=== PATIENT | male | born 1965 | race Caucasian/White ===

== ENCOUNTER 2017-03-02 20:48 | Inpatient (IN) | payer SELFPAY ==
[~2017-03-02] VITALS: Ht 180.3 cm; Wt 100.0 kg
[~2017-03-02 20:48] MED LIST: LEVO300T3 PO; LISI-366 PO; METF500 PO; QUET1TAB66 PO; RIVA20 PO
[2017-03-02 20:50] VITALS: BP 141/85; PULSE 118; RESP 16; TEMP 98.8; O2SAT 96
--- NOTE | 2017-03-02 22:44 | PD ---
HPI Chief Complaint: Injury Time Seen by Provider: 22:33 Travel History International Travel<30 days: No Contact w/Intl Traveler<30days: No Traveled to known affect area: No History of Present Illness HPI This is a 51-year-old male who presents to the emergency department with pain in his left leg immediately behind his knee, constant, cramping like a charley horse is been going on for several days. He also has persistent redness and warmth of his lower left leg that is been going on for over a month. He's been on multiple courses of Bactrim and Keflex and clindamycin over the past month and is currently taking Bactrim and Keflex prescribed by his primary care physician and by another ER his symptoms have not improved. He denies any fevers or chills. He has a history of DVT and is on Xarelto which he's been taking. PFSH Past Medical History Arthritis: No Asthma: Yes Autoimmune Disease: No Blood Disorders: Yes (FACTOR 5?) Bipolar Disorder: Yes Anxiety: Yes Depression: Yes Heart Rhythm Problems: No Cancer: No Cardiac Catheterization: No Cardiovascular Problems: Yes (HTN) High Cholesterol: Yes Chemotherapy: No Chest Pain: No Congestive Heart Failure: No COPD: No Cerebrovascular Accident: Yes Diabetes: Yes Diminished Hearing: No Deep Vein Thrombosis: Yes Endocrine: Yes Gastrointestinal Disorders: Yes GERD: No Glaucoma: No Genitourinary: No Headaches: No Hepatitis: No Hiatal Hernia: No Hypertension: Yes Immune Disorder: No Implanted Vascular Access Dvce: No Kidney Stones: No Musculoskeletal: Yes Neurologic: Yes Psychiatric: Yes Reproductive: No Respiratory: Yes Integumentary: Yes (SMALL TUMOR REMOVED FROM IN BETWEEN MY EYES) Immunizations Current: Yes Migraines: No Myocardial Infarction: No Radiation Therapy: No Renal Failure: No Seizures: No Sickle Cell Disease: No Sleep Apnea: No Thyroid Disease: Yes (THYROID REMOVED BY RADIATION) Ulcer: No Past Surgical History Abdominal Surgery: No AICD: No Appendectomy: No Arteriovenous Shunt: No Cardiac Surgery: No Cholecystectomy: No Coronary Artery Bypass Graft: No Ear Surgery: No Endocrine Surgery: Yes Eye Surgery: No Genitourinary Surgery: No Gynecologic Surgery: No Insulin Pump: No Neurologic Surgery: No Oral Surgery: No Pacemaker: No Thoracic Surgery: No Other Surgery: Yes (CYST REMOVED FROM BETWEEN EYES) Social History Alcohol Use: No Tobacco Use: No Substance Use: No Allergies-Medications (Allergen,Severity, Reaction): Coded Allergies: Lyrica (Verified Allergy, Intermediate, BILATERAL FEET SWELLING, 03/02/17) Reported Meds & Prescriptions Reported Meds & Active Scripts Active Reported Clindamycin (Clindamycin HCl) 150 Mg Cap 450 Mg PO Q8HR Bactrim DS (Sulfamethoxazole-Trimethoprim) 800-160 Mg Tab 1 Tab PO BID Prozac (Fluoxetine HCl) 40 Mg Cap 40 Mg PO DAILY Xarelto (Rivaroxaban) 20 Mg Tab 20 Mg PO DAILY Seroquel (Quetiapine Fumarate) 300 Mg Tab 600 Mg PO HS Lisinopril 40 Mg Tab 40 Mg PO DAILY Levothyroxine (Levothyroxine Sodium) 300 Mcg Tab 300 Mcg PO DAILY Review of Systems Except as stated in HPI: all other systems reviewed are Neg Physical Exam Narrative GENERAL:Well appearing, no acute distress SKIN: Warmth and erythema of the distal left lower extremity with some excoriated skin HEAD: Atraumatic. Normocephalic. EYES: Pupils equal and round. No injection or drainage. ENT: Moist mucous membranes NECK: Trachea midline. CARDIOVASCULAR: Regular rate and rhythm. No murmur appreciated. RESPIRATORY: Clear to auscultation. Breath sounds equal bilaterally. GASTROINTESTINAL: Abdomen soft, non-tender, nondistended. MUSCULOSKELETAL: No obvious deformities. NEUROLOGICAL: Awake and alert. No obvious cranial nerve deficits. Moving all extremities. PSYCHIATRIC: Appropriate mood and affect; insight and judgment normal. Data Data Last Documented VS Vital Signs Date Time Temp Pulse Resp B/P Pulse Ox O2 Delivery O2 Flow Rate FiO2 03/02/17 20:50 98.8 118 16 141/85 96 Orders Complete Blood Count With Diff (03/02/17 22:39) Comprehensive Metabolic Panel (03/02/17 22:39) ^ Insert Iv (03/02/17 22:39) Us Leg Venous Doppler (03/02/17 ) Admit Order (Ed Use Only) (03/03/17 00:32) Labs Laboratory Tests Test 03/02/17 23:00 White Blood Count 9.3 TH/MM3 Red Blood Count 4.49 MIL/MM3 Hemoglobin 14.2 GM/DL Hematocrit 42.1 % Mean Corpuscular Volume 93.7 FL Mean Corpuscular Hemoglobin 31.6 PG Mean Corpuscular Hemoglobin 33.7 % Concent Red Cell Distribution Width 15.3 % Platelet Count 298 TH/MM3 Mean Platelet Volume 6.7 FL Neutrophils (%) (Auto) 69.1 % Lymphocytes (%) (Auto) 20.0 % Monocytes (%) (Auto) 9.3 % Eosinophils (%) (Auto) 0.6 % Basophils (%) (Auto) 1.0 % Neutrophils # (Auto) 6.4 TH/MM3 Lymphocytes # (Auto) 1.9 TH/MM3 Monocytes # (Auto) 0.9 TH/MM3 Eosinophils # (Auto) 0.1 TH/MM3 Basophils # (Auto) 0.1 TH/MM3 CBC Comment DIFF FINAL Differential Comment Sodium Level 139 MEQ/L Potassium Level 4.0 MEQ/L Chloride Level 104 MEQ/L Carbon Dioxide Level 27.3 MEQ/L Anion Gap 8 MEQ/L Blood Urea Nitrogen 21 MG/DL Creatinine 1.32 MG/DL Estimat Glomerular Filtration 57 ML/MIN Rate Random Glucose 109 MG/DL Calcium Level 9.7 MG/DL Total Bilirubin 0.2 MG/DL Aspartate Amino Transf 17 U/L (AST/SGOT) Alanine Aminotransferase 26 U/L (ALT/SGPT) Alkaline Phosphatase 66 U/L Total Protein 6.8 GM/DL Albumin 3.4 GM/DL MDM Medical Decision Making Medical Screen Exam Complete: Yes Emergency Medical Condition: Yes Interpretation(s) Afebrile, tachycardic, mild hypertension No leukocytosis Mild renal insufficiency Last 24 hours Impressions Lower Extremity Ultrasound 03/02/17 0000 Signed Impressions: Service Date/Time: Thursday, March 02, 2017 23:13 - CONCLUSION: There continues to be nonocclusive thrombus in the popliteal vein which was present on the prior examination of 04/14/2016. This suggests most likely chronic DVT. The rest of the deep venous system appears to be patent. Christopher Dill MD Differential Diagnosis Cellulitis, sepsis, DVT Narrative Course This is a 51-year-old male who presents to the emergency department with cellulitis of his left lower extremity which is not improving and seems to be getting worse despite multiple courses of antibiotic therapy. He is nontoxic appearing and doesn't appear septic. He is complaining of pain posterior to the knee. An ultrasound demonstrates a nonocclusive chronic thrombus in the popliteal vein which he's had since March 2016. Patient will be admitted for IV antibiotic therapy given his worsening symptoms despite oral antibiotics. Diagnosis Primary Impression: Cellulitis Qualified Code: L03.116 - Cellulitis of left lower extremity Admitting Information Admitting Physician Requests: Admit Ritu Goldberg MD Mar 02, 2017 22:44
[2017-03-02] MEDS ORDERED: BACT800T5 PO (22:53)
[2017-03-02] MEDS ORDERED: LISI40TA PO (22:53)
[2017-03-02] MEDS ORDERED: PROZ40CA PO (22:53)
[2017-03-02] MEDS ORDERED: LEVO-171 PO (22:53)
[2017-03-02] MEDS ORDERED: XARE20TA PO (22:53)
[2017-03-02] MEDS ORDERED: SERO300T PO (22:53)
[2017-03-02] MEDS ORDERED: CLIN1CAP5 PO (22:53)
[2017-03-02 23:11] LABS: AUTOMATED NEUTROPHIL # 6.4 TH/MM3 (1.8-7.7); BASOPHIL # 0.1 TH/MM3 (0-0.2); EOSINOPHIL # 0.1 TH/MM3 (0-0.4); EOSINOPHIL % 0.6 % (0.0-4.0); HEMATOCRIT 42.1 % (39.0-51.0); HEMO FLAGS DIFF FINAL; LYMPHOCYTE # 1.9 TH/MM3 (1.0-4.8); MEAN CELL VOLUME 93.7 FL (80.0-100.0); MEAN CORPUSCULAR HEMOGLOBIN 31.6 PG (27.0-34.0); MEAN CORPUSCULAR HGB CONC 33.7 % (32.0-36.0); MONO % 9.3 % (0.0-8.0); NEUT % 69.1 % (16.0-70.0); PLATELET COUNT 298 TH/MM3 (150-450); RED BLOOD COUNT 4.49 MIL/MM3 (4.50-5.90); RED CELL DISTRIBUTION WIDTH 15.3 % (11.6-17.2); WHITE BLOOD COUNT 9.3 TH/MM3 (4.0-11.0)
[2017-03-02 23:28] LABS: ANION GAP 8 MEQ/L (5-15); AST (GOT) 17 U/L (15-37); BICARBONATE 27.3 MEQ/L (21.0-32.0); BLOOD UREA NITROGEN 21 MG/DL (7-18); CHLORIDE 104 MEQ/L (98-107); GLOMERULAR FILTRATION RATE 57 ML/MIN (>89); SODIUM (NA) 139 MEQ/L (136-145)
[2017-03-02 23:29] LABS: ALT (GPT) 26 U/L (12-78)
[2017-03-02 23:31] LABS: ALKALINE PHOSPHATASE 66 U/L (45-117); TOTAL BILIRUBIN ADULT 0.2 MG/DL (0.2-1.0)
--- NOTE | 2017-03-02 23:55 | RADRPT ---
EXAM DATE/TIME: 03/02/2017 23:13 [facility] COMPARISON: US LEG LEFT VENOUS DOPPLER, April 14, 2016, 11:20. INDICATIONS : Pain lt leg. MEDICAL HISTORY : Deep venous thrombosis. Hypertension. Hypercholesterolemia. Xarelto. SURGICAL HISTORY : Thyroid removed. Left hip and femur fracture repair. Excision of cyst ENCOUNTER: Initial ACUITY: 1 week PAIN SCORE: 3/10 LOCATION: Left leg. TECHNIQUE: Venous ultrasound of the leg was performed from the inguinal ligament to the proximal calf. Real-anthony e, color Doppler and spectral tracing, compression and augmentation techniques were used. FINDINGS: Today's exam is compared to the prior study. There appears to be some nonocclusive thrombus located i n the popliteal vein. This was present on the prior study and may represent some chronic DVT. Otherwi se the rest of the deep venous system appears to be patent with good flow up into the pelvis. There i s evidence of flow in the posterior tibial vein and peroneal veins within the calf. CONCLUSION: There continues to be nonocclusive thrombus in the popliteal vein which was present on the prior exam ination of 04/14/2016. This suggests most likely chronic DVT. The rest of the deep venous system appea rs to be patent. Christopher Dill MD on March 02, 2017 at 23:51 Board Certified Radiologist. This report was verified electronically.
[2017-03-03] VITALS (7 sets, daily range): BP systolic 116–133; BP diastolic 64–80; PULSE 68–89; RESP 14–20; TEMP 97.8–98.9; O2SAT 95–96
[2017-03-03] MEDS ORDERED: Vancomycin Consult Pharmacy 1 EA OTHER SCH (01:00)
[2017-03-03] MEDS ORDERED: NALOXONE HCL 0.4 MG/ML AMP IV PRN (01:00)
[2017-03-03] MEDS ORDERED: VANCOMYCIN INJ 1,500 MG in SODIUM CHLORID 0.9% 500 ML INJ 500 ML IV ONE (01:00)
[2017-03-03] MEDS ORDERED: SODIUM CHLORIDE 0.9% FLUSH 10 ML FLUSH IV FLUSH PRN (01:00)
[2017-03-03] MEDS ORDERED: KETOROLAC TROMETHAMINE 30 MG/ML (IVP) VIAL IV PUSH ONE (01:30)
[2017-03-03] MEDS ORDERED: traMADol HCL 50 MG TAB PO ONE (01:30)
[2017-03-03] MEDS: PIPERACIL-TAZO 4.5 GM PREMIX 100 ML IV SCH ×4 (03:48→20:53)
--- NOTE | 2017-03-03 05:46 | HHI.HP ---
[facility] Louie Quintanilla MD Admission Diagnosis cellulitis Diagnoses: Chief Complaint: left leg pain, swelling and warmth Travel History International Travel<30 Days: No Contact w/Intl Traveler <30 Da: No Traveled to Known Affected Are: No History of Present Illness Written by ALEKS Sahu acting as scribe for [Louise] on 03/03/17 at 05: 36. 51 y/o with a history of DVT, hypothyroid, HTN, Factor 5 and TIA presented to the ED with complaints of redness, swelling and pain in the left lower extremity. Patient started having DVTs for the past 5 years and has been compliant on Xarelto. Patient states for the last 3 days he has been having a severe ache behind his left knee. For the past 3 weeks he has been treated with antibiotics (Keflex, Bactrim, and clindamycin) for the redness and warmth in the left leg. One week ago he had nausea, vomiting, and diarrhea that resolved on its own. Currently denies any chest pain, sob, fever, chills, diarrhea, nausea, or vomiting. 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 Review of Systems Except as stated in HPI: all other systems reviewed are Neg Past Family Social History Past Medical History DVT on Xerolto Factor 5 Anxiety TIA 2014 Depression Past Surgical History Patient denies any surgical history Reported Medications Reported Meds & Active Scripts Active Reported Clindamycin (Clindamycin HCl) 150 Mg Cap 450 Mg PO Q8HR Bactrim DS (Sulfamethoxazole-Trimethoprim) 800-160 Mg Tab 1 Tab PO BID Prozac (Fluoxetine HCl) 40 Mg Cap 40 Mg PO DAILY Xarelto (Rivaroxaban) 20 Mg Tab 20 Mg PO DAILY Seroquel (Quetiapine Fumarate) 300 Mg Tab 600 Mg PO HS Lisinopril 40 Mg Tab 40 Mg PO DAILY Levothyroxine (Levothyroxine Sodium) 300 Mcg Tab 300 Mcg PO DAILY Allergies: Coded Allergies: Lyrica (Verified Allergy, Intermediate, BILATERAL FEET SWELLING, 03/02/17) Active Ordered Medications Current Medications Medications (Trade) Dose Ordered Sig/Sylvia Route Start Time Stop Time Status Last Admin (NS Flush) 2 ml UNSCH PRN IV FLUSH 03/03/17 01:00 (NS Flush) 2 ml BID IV FLUSH 03/03/17 09:00 Naloxone HCl 0.4 mg 0.4 mg UNSCH PRN IV 03/03/17 01:00 Pharmacy Profile Note 0 ml @ 0 mls/hr UNSCH OTHER 03/03/17 01:00 Piperacillin Sod/ Tazobactam Sod 100 ml @ 200 mls/hr Q6H IV 03/03/17 02:00 03/03/17 03:48 (Vancomycin Inj/ NS 500 ml Inj) 516.5 ml @ 250 mls/hr Q18H IV 03/03/17 20:00 Miscellaneous Information SPECIFIC LAB TO BE ... ONCE ONCE .XX 03/05/17 05:45 03/05/17 05:46 Family History Mom: Cancer Grandfather: DVTs Social History Tobacco use: Quit 4 months ago Alcohol use: Denies Physical Exam Vital Signs Vital Signs Date Time Temp Pulse Resp B/P Pulse Ox O2 Delivery O2 Flow Rate FiO2 03/03/17 03:00 89 03/03/17 02:53 97.8 80 20 123/80 96 03/02/17 20:50 98.8 118 16 141/85 96 Physical Exam GENERAL: This is a well-nourished, well-developed patient, in no apparent distress. SKIN: No rashes, ecchymoses or lesions. Cool and dry. LLE warm and red. HEAD: Atraumatic. Normocephalic. EYES: Pupils equal round and reactive. Extraocular motions intact. ENT: Nose without bleeding, purulent drainage or septal hematoma. Airway patent. NECK: Trachea midline. No JVD or lymphadenopathy. Supple, nontender, no meningeal signs. CARDIOVASCULAR: Regular rate and rhythm without murmurs, gallops, or rubs. RESPIRATORY: Clear to auscultation. Breath sounds equal bilaterally. No wheezes , rales, or rhonchi. GASTROINTESTINAL: Abdomen soft, non-tender, nondistended. No guarding. MUSCULOSKELETAL: Extremities without clubbing, cyanosis, or edema. No calf tenderness. Behind the left knee tenderness. NEUROLOGICAL: Awake and alert. Motor and sensory grossly within normal limits. Normal speech. Laboratory Laboratory Tests Test 03/02/17 23:00 White Blood Count 9.3 Red Blood Count 4.49 Hemoglobin 14.2 Hematocrit 42.1 Mean Corpuscular Volume 93.7 Mean Corpuscular Hemoglobin 31.6 Mean Corpuscular Hemoglobin 33.7 Concent Red Cell Distribution Width 15.3 Platelet Count 298 Mean Platelet Volume 6.7 Neutrophils (%) (Auto) 69.1 Lymphocytes (%) (Auto) 20.0 Monocytes (%) (Auto) 9.3 Eosinophils (%) (Auto) 0.6 Basophils (%) (Auto) 1.0 Neutrophils # (Auto) 6.4 Lymphocytes # (Auto) 1.9 Monocytes # (Auto) 0.9 Eosinophils # (Auto) 0.1 Basophils # (Auto) 0.1 CBC Comment DIFF FINAL Differential Comment Sodium Level 139 Potassium Level 4.0 Chloride Level 104 Carbon Dioxide Level 27.3 Anion Gap 8 Blood Urea Nitrogen 21 Creatinine 1.32 Estimat Glomerular Filtration 57 Rate Random Glucose 109 Calcium Level 9.7 Total Bilirubin 0.2 Aspartate Amino Transf 17 (AST/SGOT) Alanine Aminotransferase 26 (ALT/SGPT) Alkaline Phosphatase 66 Total Protein 6.8 Albumin 3.4 Result Diagram: 03/02/17 2300 03/02/17 2300 Imaging Last Impressions Lower Extremity Ultrasound 03/02/17 0000 Signed Impressions: Service Date/Time: Thursday, March 02, 2017 23:13 - CONCLUSION: There continues to be nonocclusive thrombus in the popliteal vein which was present on the prior examination of 04/14/2016. This suggests most likely chronic DVT. The rest of the deep venous system appears to be patent. Christopher Dill MD Assessment and Plan Problem List: (1) DVT (deep venous thrombosis) ICD Code: I82.409 Status: Acute Assessment and Plan 51 y/o with a history of DVT, hypothyroid, HTN, Factor 5 and TIA presented to the ED with complaints of redness, swelling and pain in the left lower extremity. DVT, chronic US lower extremity reviewed and shows nonocclusive thrombus in the popliteal vein, chronic dvt. -Consult hematology for recommendations, patient is on Xarelto and has a factor 5 history -Elevate while in bed -Pain management with Tramadol Cellulitis, likely due to chronic DVT, patient has been on antibiotics for 3 weeks -Cont Vanco and Zosyn IV -CBC in AM HTN, chronic, controlled -Resume home medications lisinopril Hypothyroid, chronic -Cont home medication Synthroid DVT prophylaxis: Carmella Discussed Condition With Patient and ED physician Physician Certification 2 Midnight Certification Type: Admission for Inpatient Services Order for Inpatient Services The services are ordered in accordance with Medicare regulations or non- Medicare payer requirements, as applicable. In the case of services not specified as inpatient-only, they are appropriately provided as inpatient services in accordance with the 2-midnight benchmark. Estimated LOS (days): 2 days is the estimated time the patient will need to remain in the hospital, assuming treatment plan goals are met and no additional complications. Post-Hospital Plan: Home Sharron Earl Mar 03, 2017 05:46
[2017-03-03] MEDS ORDERED: FAMOTIDINE 20 MG TAB PO ONE (06:00)
[2017-03-03] MEDS: LISINOPRIL 20 MG TAB PO SCH (11:44)
[2017-03-03] MEDS: LEVOTHYROXINE SODIUM 150 MCG TAB PO SCH (11:44)
[2017-03-03] MEDS: FLUoxetine HCL 20 MG CAP PO SCH (11:45)
[2017-03-03] MEDS: SODIUM CHLORIDE 0.9% FLUSH 10 ML FLUSH IV FLUSH SCH ×2 (11:46→21:00)
[2017-03-03] MEDS: traMADol HCL 50 MG TAB PO PRN ×2 (13:24→20:53)
[2017-03-03] MEDS ORDERED: RIVAROXABAN 20 MG TAB PO SCH (17:00)
[2017-03-03] MEDS ORDERED: VANCOMYCIN INJ 1,750 MG in SODIUM CHLORID 0.9% 500 ML INJ 500 ML IV SCH (20:00)
[2017-03-03] MEDS ORDERED: QUEtiapine FUMARATE 300 MG TAB PO SCH (21:00)
[2017-03-04 00:28] VITALS: BP 119/70; PULSE 81; RESP 19; TEMP 98.2; O2SAT 94
[2017-03-04] MEDS: PIPERACIL-TAZO 4.5 GM PREMIX 100 ML IV SCH ×2 (01:19→08:04)
[2017-03-04 03:54] VITALS: BP 113/74; PULSE 73; RESP 18; TEMP 98; O2SAT 95
[2017-03-04] MEDS: LEVOTHYROXINE SODIUM 150 MCG TAB PO SCH (06:36)
[2017-03-04 07:13] LABS: BASOPHIL # 0.1 TH/MM3 (0-0.2); BASOPHIL % 1.2 % (0.0-2.0); EOSINOPHIL # 0.2 TH/MM3 (0-0.4); EOSINOPHIL % 3.7 % (0.0-4.0); HEMATOCRIT 37.9 % (39.0-51.0); HEMO FLAGS DIFF FINAL; LYMPH % 34.9 % (9.0-44.0); LYMPHOCYTE # 2.1 TH/MM3 (1.0-4.8); MEAN CELL VOLUME 94.4 FL (80.0-100.0); MEAN CORPUSCULAR HEMOGLOBIN 31.9 PG (27.0-34.0); MEAN CORPUSCULAR HGB CONC 33.8 % (32.0-36.0); MONO % 8.9 % (0.0-8.0); NEUT % 51.3 % (16.0-70.0); PLATELET COUNT 274 TH/MM3 (150-450); RED BLOOD COUNT 4.01 MIL/MM3 (4.50-5.90); WHITE BLOOD COUNT 5.9 TH/MM3 (4.0-11.0)
[2017-03-04 07:40] LABS: BICARBONATE 26.1 MEQ/L (21.0-32.0); POTASSIUM 3.6 MEQ/L (3.5-5.1)
[2017-03-04 08:00] VITALS: BP 131/80; PULSE 67; RESP 16; TEMP 97.9; O2SAT 96
--- NOTE | 2017-03-04 08:54 | HHI.PR ---
Subjective Remarks Feels much better. Swelling and redness improved significantly. Patient denies any fever or chills. No n/v/d/c. Denies chest pain or sob,. He is able to walk without any problems. Objective Vitals Vital Signs Date Time Temp Pulse Resp B/P Pulse Ox O2 Delivery O2 Flow Rate FiO2 03/04/17 03:54 98.0 73 18 113/74 95 03/04/17 00:28 98.2 81 19 119/70 94 03/03/17 21:23 18 03/03/17 19:48 98.2 68 17 133/65 95 03/03/17 16:24 97.8 75 14 116/64 95 03/03/17 12:02 98.9 72 14 126/74 96 I/O 03/03/17 03/03/17 03/03/17 03/04/17 03/04/17 03/04/17 07:00 15:00 23:00 07:00 15:00 23:00 Intake Total 2200 ml 50 ml Output Total 1800 ml Balance 400 ml 50 ml Intake Oral 1100 ml 50 ml IV Total 1100 ml Output Urine Total 1800 ml Stool Total 0 ml Result Diagram: 03/04/17 0648 03/04/17 0648 Imaging Last Impressions Lower Extremity Ultrasound 03/02/17 0000 Signed Impressions: Service Date/Time: Thursday, March 02, 2017 23:13 - CONCLUSION: There continues to be nonocclusive thrombus in the popliteal vein which was present on the prior examination of 04/14/2016. This suggests most likely chronic DVT. The rest of the deep venous system appears to be patent. Christopher Dill MD Objective Remarks GENERAL: This is a well-nourished, well-developed patient, in no apparent distress. SKIN: No rashes, ecchymoses or lesions. Cool and dry. LLE warm and red. CARDIOVASCULAR: Regular rate and rhythm without murmurs, gallops, or rubs. RESPIRATORY: Clear to auscultation. Breath sounds equal bilaterally. No wheezes , rales, or rhonchi. GASTROINTESTINAL: Abdomen soft, non-tender, nondistended. No guarding. MUSCULOSKELETAL: Extremities without clubbing, cyanosis, or edema. No calf tenderness. Behind the left knee tenderness. NEUROLOGICAL: Awake and alert. Motor and sensory grossly within normal limits. Normal speech. A/P Problem List: (1) DVT (deep venous thrombosis) ICD Code: I82.409 Status: Acute Assessment and Plan 51 y/o with a history of DVT, hypothyroid, HTN, Factor 5 and TIA presented to the ED with complaints of redness, swelling and pain in the left lower extremity. DVT, chronic US lower extremity reviewed and shows nonocclusive thrombus in the popliteal vein, chronic dvt. -Consult hematology for recommendations, patient is on Xarelto and has a factor [address]. [address] Larkin oncology recommends follow up as OP with him in his office he plans to deescalate Xarelto as OP and start him on Eliquis 2.5 mg bid. as OP. Patient to continue Pradaxa at discharge. -Elevate while in bed -Pain management with Tramadol. Cellulitis, likely due to chronic DVT, patient has been on antibiotics for 3 weeks -Received Vanco and Zosyn IV. Improved significantly. -CBC in AM ANANTH Cr of 1.3 on admission. Kidney indices improved with IVF. Cont IVF. Monitor kidney function, avoid nephrotoxins. HTN, chronic, controlled -Resume home medications lisinopril Hypothyroid, chronic -Cont home medication Synthroid DVT prophylaxis: Xarelto Discussed Condition With Patient, nurse Improved significantly, cleared by Dr Larkin oncology for Dc to follow up with him as OP. Patient is on Xarelto and has a factor [address] Larkin oncology recommends follow up as OP with him in his office he plans to deescalate Xarelto as OP and start him on Eliquis 2.5 mg bid. as OP. Patient to continue Pradaxa at discharge. Discharge Planning Discharge home in stable condition to follow up as OP with PCP and consultants. Meds per med reconciliation Activity ad mari as tolerated Diet: healthy heart diet Odette Miller MD Mar 04, 2017 08:54
--- NOTE | 2017-03-04 08:58 | MB ---
cc: LUCHO MAE MD,KELLEY Pena M.D. HEMATOLOGY/ONCOLOGY CONSULTATION NOTE DATE OF CONSULTATION 03/04/2017 DATE OF 1965 [address] Kelley Quintanilla REASON FOR CONSULTATION Chronic left lower extremity partially destructive thrombus involving the left popliteal vein and left peroneal vein. The patient reportedly has a history of Factor V Leiden mutation. TREATMENT HISTORY The patient has been on long-term anticoagulation initially started in 2008 presently on a therapeutic dose of Xarelto. CHIEF COMPLAINT The patient reports a one-month history of left leg swelling, redness and throbbing pain. He reports having been on various oral antibiotics including Keflex, clindamycin and Bactrim none of which seem to eradicate the suspected cellulitis. HISTORY OF PRESENT ILLNESS Mr. Price is a very pleasant 51-year-old male, he presented to [facility] on 03/03/2017 with a one-month history of leg redness, swelling and throbbing pain. He has a history of recurrent left leg cellulitis dating back to 2008. He tells me the cellulitis is typically provoked by swelling of the leg and his leg swells whenever he is up on his feet for prolonged periods of time. He had been on oral outpatient antibiotics as outlined above (Keflex, Bactrim and clindamycin) without resolution of the symptoms. He therefore came into the emergency department and has been initiated on intravenous antibiotics consisting of vancomycin and Zosyn. He reports the redness and pain, as well as swelling have improved since IV antibiotics were initiated. . I have been asked to see Mr. Price to help address his history of chronic left lower extremity deep venous thrombosis. Mr. 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 He developed, at that time, throbbing pain and cramping behind the left knee. Ultrasound Dopplers in July of 2009 indicated a partially obstructive left peroneal vein and posterior tibial vein thrombosis. He was initiated on anticoagulation and repeat ultrasound Dopplers in December of 2009 indicated resolution of the DVT. In July of 2013, he developed pain and swelling in the left leg again and repeat ultrasound Doppler studies indicated a nonocclusive DVT involving the left popliteal and peroneal vein. The DVTs were again noted to be present in March of 2016 and then again in February of 2017. He has remained on anticoagulation since his initial diagnosis. 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 PAST MEDICAL HISTORY 1. Hypertension 2. Hypothyroidism 3. Recurrent cellulitis of the left leg 4. Chronic nonocclusive thrombosis involving the left lower extremity. PAST SURGICAL HISTORY Fractured left hip and left femur from a fall he suffered as a child. FAMILY HISTORY Paternal grandfather had "blood clots". Mother of complications of metastatic head and neck squamous cell carcinoma. Father recently following complications of a hip fracture at the age of 81. HEALTH MAINTENANCE He is up-to-date with colonoscopy which was done in 2016, PSA was also done last year and was noted to be "normal". 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 He has no children, he is , he was formerly a smoker, but quit in 2008. He denies alcohol or drug abuse. ALLERGIES LYRICA CURRENT INPATIENT MEDICATIONS 1. Vancomycin 1750 mg IV every 18 hours 2. Levothyroxine 300 mcg p.o. daily 3. Fluoxetine 40 mg once a day 4. Zosyn at a dose of 4.5 grams IV q.6 h. 5. Lisinopril 40 mg once daily 6. Seroquel 600 mg p.o. q.h.s. 7. Xarelto 20 mg p.o. daily 8. Tramadol 50 mg p.o. q.8 h as needed for pain. REVIEW OF SYSTEMS A 13-point review of systems are obtained. The following are the pertinent positives: CONSTITUTIONAL: The patient denies chills, sweats, fever, loss of appetite or weight loss. HEENT: Denies headaches, blurry vision, difficulty swallowing or soreness in the throat. RESPIRATORY: Denies difficulty breathing, cough, hemoptysis, pleuritic chest pain. CARDIOVASCULAR: Denies angina-like chest pain, PND, orthopnea. GI: Denies nausea, vomiting, diarrhea hematochezia, melena. He denies abdominal distension. : Denies dysuria, hematuria, urinary incontinence. 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 Only pertinent positives have been mentioned in the HPI and pertain to his left leg swelling, redness and pain. PHYSICAL EXAMINATION VITAL SIGNS: Temperature 98 degrees Fahrenheit, heart rate 73 beats per minute, respiratory rate 18, blood pressure is 113/74, O2 sats are 95% on room air. GENERAL PHYSICAL APPEARANCE: Mr. Price is a very pleasant middle-aged male, he is laying in bed, appears to be in no acute distress and has a pleasant disposition. HEENT: Head atraumatic, normocephalic, conjunctive are non-pale, sclerae are anicteric, EOMI, PERRLA, oral exam no pharyngeal erythema. NECK: No palpable cervical or supraclavicular lymphadenopathy. RESPIRATORY: Good air movement bilaterally without any added breath sounds. CARDIOVASCULAR: Regular rate and rhythm, S1-S2. No obvious murmurs, rubs or gallops. ABDOMEN: Protuberant belly, soft and nontender, nondistended. No palpable organ enlargement. EXTREMITIES: Lower extremities, no pretibial edema on the right side, no calf tenderness. No skin color changes. Left leg, erythema is noted, some warmth, but no swelling. He does have some tenderness along an area of erythema involving the mid schneider. The erythema is over 15 cm in craniocaudal dimension. LABORATORY FINDINGS Blood work dated 03/04/2017: WBC count 5.9, hemoglobin 12.8 gm/dl, hematocrit 38%, platelet count 274, absolute neutrophil count is 3. Chemistries: Sodium 141, potassium 3.6, chloride 106, bicarb 26, creatinine 0.97, EGFR 81, random glucose 119, calcium 8.8. IMAGING STUDIES Ultrasound Doppler of the left leg dated 03/02/2017 indicates continued evidence of nonocclusive thrombus in the left popliteal vein which was present on prior scans dating all the way back to 2008. This suggests a chronic DVT. The remainder of the deep venous system appears patent. ASSESSMENT Mr. Price is a very pleasant 51-year-old male with a history of chronic left popliteal vein and left peroneal vein deep venous thrombosis. 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 He reportedly was told that he was a carrier for the Factor V Leiden mutation when he was tested for this in [place], [place] some years ago. He has been on anticoagulation ever since. He has no other history of venous or arterial thromboembolism. The patient tells me he has been on anticoagulation dating back to 2008. Presently, he is on Xarelto 20 mg once daily and tells me he has adhered to daily dosing without fail. He presents to the hospital with recurrent left leg cellulitis. RECOMMENDATIONS Chronic left lower extremity DVT dating back to 2008, his DVT has been assessed and reassessed to be stable on multiple scans over the years including scans in 2009, 2012, 2016 and 2017. It is unlikely this DVT will resolve regardless of the degree or intensity of anticoagulation. He does have chronic symptoms of venous insufficiency and the venous insufficiency and resultant edema is probably what provoked recurrent cellulitis of the left leg. He is currently appropriately antibiotics and clinically seems to be improving, he certainly feels improved. As far as continuing anticoagulation at full therapeutic dose is concerned, I would suggest his anticoagulation be de-escalated to intermediate dose and an appropriate dosing would be Eliquis 2.5 mg twice daily. I can easily make this transition as an outpatient. I will also obtain a prothrombotic workup including Factor V Leiden to document the presence of this. I will schedule him to see me in my outpatient clinic in [facility] in the upcoming weeks. MD HERIBERTO Hendricks/ROC /8:05 AM /8:37 AM
[2017-03-04] MEDS ORDERED: BACT800T5 PO (09:20)
[2017-03-04] MEDS ORDERED: CLIN1CAP5 PO (09:20)
--- NOTE | 2017-03-04 09:20 | HHI.DCPOC ---
Discharge Care Plan Goals to Promote Your Health * To prevent worsening of your condition and complications * To maintain your health at the optimal level Directions to Meet Your Goals Take your medications as prescribed Follow your dietary instruction Follow activity as directed Keep your appointments as scheduled Take your immunizations and boosters as scheduled If your symptoms worsen call your PCP, if no PCP go to Urgent Care Center or Emergency Room Smoking is Dangerous to Your Health. Avoid second hand smoke Call the 24-hour hour crisis hotline for domestic abuse at Odette Miller MD Mar 04, 2017 09:20
[2017-03-04] MEDS: LISINOPRIL 20 MG TAB PO SCH (09:52)
[2017-03-04] MEDS: FLUoxetine HCL 20 MG CAP PO SCH (09:52)
[2017-03-04] MEDS ORDERED: PNEUMOCOCCAL POLYVALENT INJ 25 MCG/0.5 ML SYR IM ONE (10:00)
[2017-03-05] MEDS ORDERED: PHARMACY ORDERED LAB ONE (05:45)
== END 2017-03-04 11:30 | disposition home or self-care (01) | DRG 603 ==
LOC: NEPE 20:48 → NEDA 03-03 00:33 → NEPHCDU 03-03 02:28
PROVIDERS: ADMIT Hospitalist; ATTEND Hospitalist
DX: L03.116 Cellulitis of left lower limb (principal); N17.9 Acute kidney failure, unspecified; D68.51 Activated protein C resistance; I82.532 Chronic embolism and thrombosis of left popliteal vein; I10 Essential (primary) hypertension; Z79.02 Long term (current) use of antithrombotics/antiplatelets; J45.909 Unspecified asthma, uncomplicated; F31.9 Bipolar disorder, unspecified; F41.9 Anxiety disorder, unspecified; Z86.73 Personal history of transient ischemic attack (TIA), and cerebral infarction without residual deficits; E78.00 Pure hypercholesterolemia, unspecified; E11.9 Type 2 diabetes mellitus without complications; E03.9 Hypothyroidism, unspecified; Z87.891 Personal history of nicotine dependence; M71.22 Synovial cyst of popliteal space [Baker], left knee; Z23 Encounter for immunization
CPT/HCPCS: 80048; 80053; 85025; 90732; 93971; J2543; J3370; J7040

== ENCOUNTER 2017-03-08 18:04 | Emergency (ER) | payer SELFPAY ==
[~2017-03-08] VITALS: Ht 177.8 cm; Wt 100.0 kg
[~2017-03-08 18:04] MED LIST changes: +BACT800T5 PO; +CLIN1CAP5 PO; +LEVO-171 PO; -LEVO300T3 PO; -LISI-366 PO; +LISI40TA PO; -METF500 PO; +PROZ40CA PO; -QUET1TAB66 PO; -RIVA20 PO; +SERO300T PO; +XARE20TA PO
[2017-03-08 18:08] VITALS: BP 148/95; PULSE 109; RESP 24; TEMP 98.3; O2SAT 97
[2017-03-08] MEDS ORDERED: CLON0.1T PO (18:49)
[2017-03-08] MEDS ORDERED: APIX2.5T PO (18:49)
--- NOTE | 2017-03-08 18:53 | PD ---
HPI Chief Complaint: Medical Clearance Time Seen by Provider: 18:45 Travel History International Travel<30 days: No Contact w/Intl Traveler<30days: No Traveled to known affect area: No History of Present Illness HPI This is a patient with history of factor V Leiden, recently admitted for DVT in the left leg and cellulitis to left leg, presents for reevaluation. Admitted on March 03 for cellulitis in the left pretibial region as well as left leg DVT. He was switched from Xarelto to eliquis and discharged with prescriptions for Bactrim and clindamycin to treat cellulitis. She says that the redness on the left pretibial regions, worse over the past few days. He is also developed some wounds which are bleeding through his compression stockings yesterday and today. In addition the patient complains of mild dyspnea which started yesterday. The dyspnea is with exertion. He is denying any chest pain, abdominal pain, nausea or vomiting, fevers or chills. No history of PE. No other complaints. Primary care physician is Dr. Quintanilla. [facility] Past Medical History Arthritis: No Asthma: No Autoimmune Disease: No Blood Disorders: Yes (FACTOR 5?) Bipolar Disorder: Yes Anxiety: Yes Depression: Yes Heart Rhythm Problems: No Cancer: No Cardiac Catheterization: No Cardiovascular Problems: Yes High Cholesterol: No Chemotherapy: No Chest Pain: No Congestive Heart Failure: No COPD: No Cerebrovascular Accident: Yes (tia) Diabetes: No Diminished Hearing: No Deep Vein Thrombosis: Yes Endocrine: Yes Gastrointestinal Disorders: Yes GERD: No Glaucoma: No Genitourinary: No Headaches: No Hepatitis: No Hiatal Hernia: No Hypertension: Yes Immune Disorder: No Implanted Vascular Access Dvce: No Kidney Stones: No Musculoskeletal: No Neurologic: Yes Psychiatric: Yes Reproductive: No Respiratory: No Integumentary: Yes (SMALL TUMOR REMOVED FROM IN BETWEEN MY EYES) Immunizations Current: Yes Migraines: No Myocardial Infarction: No Radiation Therapy: No Renal Failure: No Seizures: No Sickle Cell Disease: No Sleep Apnea: No Thyroid Disease: Yes (THYROID REMOVED BY RADIATION) Ulcer: No Past Surgical History Abdominal Surgery: No AICD: No Appendectomy: No Arteriovenous Shunt: No Cardiac Surgery: No Cholecystectomy: No Coronary Artery Bypass Graft: No Ear Surgery: No Endocrine Surgery: No Eye Surgery: No Genitourinary Surgery: No Gynecologic Surgery: No Insulin Pump: No Neurologic Surgery: No Oral Surgery: No Pacemaker: No Thoracic Surgery: No Other Surgery: Yes (CYST REMOVED FROM BETWEEN EYES) Social History Alcohol Use: No Tobacco Use: No Substance Use: No Allergies-Medications (Allergen,Severity, Reaction): Coded Allergies: Lyrica (Verified Allergy, Intermediate, BILATERAL FEET SWELLING, 03/08/17) Reported Meds & Prescriptions Reported Meds & Active Scripts Active Clindamycin (Clindamycin HCl) 150 Mg Cap 450 Mg PO Q8HR Bactrim DS (Sulfamethoxazole-Trimethoprim) 800-160 Mg Tab 1 Tab PO BID Reported Eliquis (Apixaban) 2.5 Mg Tab 2.5 Mg PO BID Clonidine (Clonidine HCl) 0.1 Mg Tab 0.1 Mg PO BID Prozac (Fluoxetine HCl) 40 Mg Cap 40 Mg PO DAILY Seroquel (Quetiapine Fumarate) 300 Mg Tab 600 Mg PO HS Lisinopril 40 Mg Tab 40 Mg PO DAILY Levothyroxine (Levothyroxine Sodium) 300 Mcg Tab 300 Mcg PO DAILY Review of Systems Except as stated in HPI: all other systems reviewed are Neg Physical Exam Narrative GENERAL: Well-nourished male in no acute distress SKIN: Warm and dry. There is some pretibial erythema. There are some skin excoriation to the posterior left calf. There are no ulcerations. No induration or fluctuance. HEAD: Atraumatic. Normocephalic. EYES: Pupils equal and round. No scleral icterus. No injection or drainage. ENT: No nasal bleeding or discharge. Mucous membranes pink and moist. NECK: Trachea midline. No JVD. CARDIOVASCULAR: Regular rate and rhythm. No murmur appreciated. RESPIRATORY: No accessory muscle use. Clear to auscultation. Breath sounds equal bilaterally. GASTROINTESTINAL: Abdomen soft, non-tender, nondistended. Hepatic and splenic margins not palpable. MUSCULOSKELETAL: No obvious deformities. Skin as noted above with no pitting edema to the lower extremities. 2+ dorsalis pedis pulse bilaterally. NEUROLOGICAL: Awake and alert. No obvious cranial nerve deficits. Motor grossly within normal limits. Normal speech. PSYCHIATRIC: Appropriate mood and affect; insight and judgment normal. Data Data Last Documented VS Vital Signs Date Time Temp Pulse Resp B/P Pulse Ox O2 Delivery O2 Flow Rate FiO2 03/08/17 19:26 86 20 147/96 94 Room Air 03/08/17 18:08 98.3 Orders Complete Blood Count With Diff (03/08/17 18:51) Comprehensive Metabolic Panel (03/08/17 18:51) B-Type Natriuretic Peptide (03/08/17 18:51) Act Partial Throm Time (Ptt) (03/08/17 18:51) Prothrombin Time / Inr (Pt) (03/08/17 18:51) Magnesium (Mg) (03/08/17 18:51) Ckmb (Isoenzyme) Profile (03/08/17 18:51) Troponin I (03/08/17 18:51) Iv Access Insert/Monitor (03/08/17 18:51) Electrocardiogram (03/08/17 18:51) Ecg Monitoring (03/08/17 18:51) Oximetry (03/08/17 18:51) Oxygen Administration (03/08/17 18:51) Chest, Single Ap (03/08/17 18:51) Ct Pulmonary Angiogram (03/08/17 18:51) Sodium Chloride 0.9% Flush (Ns Flush) (03/08/17 19:00) Lactic Acid Sepsis Protocol (03/08/17 18:51) Blood Culture (03/08/17 18:51) Iohexol 350 Inj (Omnipaque 350 Inj) (03/08/17 20:29) Labs Laboratory Tests Test 03/08/17 03/08/17 19:00 19:15 White Blood Count 7.8 TH/MM3 Red Blood Count 4.53 MIL/MM3 Hemoglobin 14.3 GM/DL Hematocrit 42.7 % Mean Corpuscular Volume 94.3 FL Mean Corpuscular Hemoglobin 31.7 PG Mean Corpuscular Hemoglobin 33.6 % Concent Red Cell Distribution Width 14.7 % Platelet Count 322 TH/MM3 Mean Platelet Volume 6.9 FL Neutrophils (%) (Auto) 73.2 % Lymphocytes (%) (Auto) 18.8 % Monocytes (%) (Auto) 6.2 % Eosinophils (%) (Auto) 1.1 % Basophils (%) (Auto) 0.7 % Neutrophils # (Auto) 5.7 TH/MM3 Lymphocytes # (Auto) 1.5 TH/MM3 Monocytes # (Auto) 0.5 TH/MM3 Eosinophils # (Auto) 0.1 TH/MM3 Basophils # (Auto) 0.1 TH/MM3 CBC Comment DIFF FINAL Differential Comment Prothrombin Time 10.3 SEC Prothromb Time International 0.9 RATIO Ratio Activated Partial 26.1 SEC Thromboplast Time Sodium Level 138 MEQ/L Potassium Level 3.8 MEQ/L Chloride Level 106 MEQ/L Carbon Dioxide Level 27.9 MEQ/L Anion Gap 4 MEQ/L Blood Urea Nitrogen 17 MG/DL Creatinine 1.02 MG/DL Estimat Glomerular Filtration 77 ML/MIN Rate Random Glucose 176 MG/DL Calcium Level 9.0 MG/DL Magnesium Level 2.2 MG/DL Total Bilirubin 0.4 MG/DL Aspartate Amino Transf 15 U/L (AST/SGOT) Alanine Aminotransferase 23 U/L (ALT/SGPT) Alkaline Phosphatase 68 U/L Total Creatine Kinase 56 U/L Troponin I LESS THAN 0.02 NG/ML B-Type Natriuretic Peptide 30 PG/ML Total Protein 6.9 GM/DL Albumin 3.5 GM/DL Lactic Acid Level 1.3 mmol/L MDM Medical Decision Making Medical Screen Exam Complete: Yes Emergency Medical Condition: Yes Medical Record Reviewed: Yes Differential Diagnosis DVT, cellulitis. The patient therapy, skin excoriation secondary to compression stockings, skin ulceration, venous stasis dermatitis, PE Narrative Course 51-year-old male with history of factor V Leiden who recently had his anticoagulation changed from xarelto to eliquis, admitted on March 03 for cellulitis and left lower extremity DVT, currently on Bactrim and clindamycin, presents for evaluation of the left large cellulitis. He feels that the redness is somewhat worsened since being discharged. He is also developed some bleeding wounds to the left lower leg as well as some shortness of breath with exertion which started yesterday. He is currently hemodynamically stable. Given his history of factor V later then new onset shortness of breath, plan is for CT pulmonary injury David. Basic lab work, EKG, chest x-ray been ordered. Reassuringly the patient's CT pulmonary exam is negative. His lab work is reassuring with Katherine WBC 7.8, lactic acid 1.3, negative BNP, CMP is unremarkable. At this point in time the plan would be to have the patient follow up with his intel analyst Dr. Larkin, he plans on following up tomorrow. It Is recommended that he continue his oral antibiotic therapy as prescribed and to keep the excoriated wounds clean. Discussed signs and symptoms that would warrant returning to the emergency room. He is stable for discharge. Diagnosis Primary Impression: Cellulitis Qualified Code: L03.116 - Cellulitis of left lower extremity Referrals: Dirk Larkin MD Additional Instructions: Follow-up as scheduled with your intel analyst Dr. Larkin. Keep wounds clean by washing with soap and water and apply antibiotic cream daily. Continue taking medications, including Bactrim and clindamycin, as prescribed. Return for evidence of acutely worsening infection such as increasing redness, red streaks up the leg, fevers. Med/Other Pt SpecificInfo: No Change to Meds Disposition: 01 DISCHARGE HOME Condition: Stable Mark Valadez Mar 08, 2017 18:53
[2017-03-08] MEDS ORDERED: SODIUM CHLORIDE 0.9% FLUSH 10 ML FLUSH IVF PRN (19:00)
[2017-03-08 19:07] VITALS: RESP 21; O2SAT 96
--- NOTE | 2017-03-08 19:21 | RADRPT ---
EXAM DATE/TIME: 03/08/2017 18:57 [facility] COMPARISON: CHEST SINGLE AP, July 21, 2013, 19:49. INDICATIONS : Left leg DVT and bleeding. Chest pressure. MEDICAL HISTORY : Deep venous thrombosis. Hypertension Hypercholesterolemia. SURGICAL HISTORY : None. Thyroid removed. Left hip and femur fracture repair. Excision of cyst. ENCOUNTER: Subsequent ACUITY: 3 days PAIN SCORE: 1/10 LOCATION: Bilateral chest FINDINGS: A single view of the chest demonstrates the lungs to be symmetrically aerated without evidence of mas s, infiltrate or effusion. The cardiomediastinal contours are unremarkable. Osseous structures are intact. CONCLUSION: No acute disease. Homero Cardoso MD on March 08, 2017 at 19:19 Board Certified Radiologist. This report was verified electronically.
[2017-03-08 19:26] VITALS: BP 147/96; PULSE 86; RESP 20; O2SAT 94
[2017-03-08 19:39] LABS: AUTOMATED NEUTROPHIL # 5.7 TH/MM3 (1.8-7.7); BASOPHIL # 0.1 TH/MM3 (0-0.2); BASOPHIL % 0.7 % (0.0-2.0); EOSINOPHIL # 0.1 TH/MM3 (0-0.4); EOSINOPHIL % 1.1 % (0.0-4.0); HEMATOCRIT 42.7 % (39.0-51.0); HEMO FLAGS DIFF FINAL; LYMPH % 18.8 % (9.0-44.0); LYMPHOCYTE # 1.5 TH/MM3 (1.0-4.8); MEAN CELL VOLUME 94.3 FL (80.0-100.0); MEAN CORPUSCULAR HEMOGLOBIN 31.7 PG (27.0-34.0); MEAN CORPUSCULAR HGB CONC 33.6 % (32.0-36.0); MONO % 6.2 % (0.0-8.0); NEUT % 73.2 % (16.0-70.0); PLATELET COUNT 322 TH/MM3 (150-450); RED BLOOD COUNT 4.53 MIL/MM3 (4.50-5.90); RED CELL DISTRIBUTION WIDTH 14.7 % (11.6-17.2); WHITE BLOOD COUNT 7.8 TH/MM3 (4.0-11.0)
[2017-03-08 19:50] LABS: APTT (PATIENT) 26.1 SEC (24.3-30.1); INTERNATIONAL NORMALIZED RATIO 0.9 RATIO; PROTHROMBIN TIME - PATIENT 10.3 SEC (9.8-11.6)
[2017-03-08 20:00] LABS: ANION GAP 4 MEQ/L (5-15); AST (GOT) 15 U/L (15-37); BICARBONATE 27.9 MEQ/L (21.0-32.0); BLOOD UREA NITROGEN 17 MG/DL (7-18); CHLORIDE 106 MEQ/L (98-107); GLOMERULAR FILTRATION RATE 77 ML/MIN (>89); MAGNESIUM 2.2 MG/DL (1.5-2.5); POTASSIUM 3.8 MEQ/L (3.5-5.1); SODIUM (NA) 138 MEQ/L (136-145)
[2017-03-08 20:01] LABS: ALT (GPT) 23 U/L (12-78)
[2017-03-08 20:04] LABS: ALKALINE PHOSPHATASE 68 U/L (45-117); TOTAL BILIRUBIN ADULT 0.4 MG/DL (0.2-1.0)
[2017-03-08 20:08] LABS: CREATINE KINASE 56 U/L (39-308)
[2017-03-08] MEDS ORDERED: IOHEXOL 350 MG/ML 10 ML VIAL (for RAD DIAG) IV ONE (20:29)
--- NOTE | 2017-03-08 20:46 | RADRPT ---
EXAM DATE/TIME: 03/08/2017 20:23 [facility] COMPARISON: CT PULMONARY ANGIOGRAM, July 21, 2013, 22:55. INDICATIONS : Short of breath. IV CONTRAST: 75 cc Omnipaque 350 (iohexol) IV RADIATION DOSE: 13.73 CTDIvol (mGy) MEDICAL HISTORY : Deep venous thrombosis. Cardiovascular disease TIA. SURGICAL HISTORY : None. ENCOUNTER: Initial ACUITY: 1 day PAIN SCALE: 0/10 LOCATION: chest TECHNIQUE: Volumetric scanning of the chest was performed using a pulmonary embolism protocol MIP images were re constructed. Using automated exposure control and adjustment of the mA and/or kV according to patien t size, radiation dose was kept as low as reasonably achievable to obtain optimal diagnostic quality images. DICOM format image data is available electronically for review and comparison. Follow-up recommendations for incidentally detected pulmonary nodules are based at a minimum on nodul e size and patient risk factors according to Fleischner Society Guidelines. FINDINGS: PULMONARY ARTERIES: No filling defects are seen in the pulmonary arteries through the segmental level. LUNGS: There is no consolidation or pneumothorax . No concerning pulmonary nodule is visualized. PLEURAE: There is no pleural thickening or pleural effusion. MEDIASTINUM: There is good visualization of the great vessels of the middle mediastinum. No evidence of mediastin al or hilar adenopathy/mass. MUSCULOSKELETAL: Within normal limits for patient age. MISCELLANEOUS: The visualized upper abdominal organs demonstrate no acute abnormality. Hepatic low densities. Cholel ithiasis and punctate renal calcifications. CONCLUSION: 1. No evidence for pulmonary embolism. 2. No pneumonia or pleural effusion. Homero Cardoso MD on March 08, 2017 at 20:40 Board Certified Radiologist. This report was verified electronically.
--- NOTE | 2017-03-09 11:57 | EKG ---
Date Performed: 03/08/2017 Time Performed: 19:37:26 PTAGE: 51 years EKG: Sinus rhythm NORMAL ECG PREVIOUS TRACING : 09/16/2013 21.54 Compared to prior tracing no significant change DOCTOR: Charly Lundberg Interpretating Date/Time 03/09/2017 11:55:21
== END 2017-03-08 21:42 | disposition home or self-care (01) ==
LOC: NEPE 18:04
DX: L03.116 Cellulitis of left lower limb (principal); D68.2 Hereditary deficiency of other clotting factors; I10 Essential (primary) hypertension; F31.9 Bipolar disorder, unspecified; F41.9 Anxiety disorder, unspecified; F32.9 Major depressive disorder, single episode, unspecified; Z86.718 Personal history of other venous thrombosis and embolism; Z79.899 Other long term (current) drug therapy; Z86.73 Personal history of transient ischemic attack (TIA), and cerebral infarction without residual deficits
CPT/HCPCS: 71010; 71275; 80053; 82550; 83605; 83735; 83880; 84484; 85025; 85610; 85730; 87040; 93005; 99285; Q9967